=== PATIENT | female | born 1955 | race African-American/Black ===

== ENCOUNTER 2019-09-13 22:50 | Emergency (ER) | payer MEDICAID, MEDICARE, OTHER ==
[~2019-09-13] VITALS: Ht 167.6 cm; Wt 68.2 kg
[~2019-09-13 22:50] MED LIST: NOCURR
[2019-09-14] MEDS ORDERED: ACETAMINOPHEN 500 MG TABLET PO ONE
[2019-09-14] MEDS ORDERED: FluPHENAZine HCL 10 MG TABLET PO ONE (00:15)
[2019-09-14 00:30] VITALS: BP 126/75
== END 2019-09-14 01:20 | disposition home or self-care (01) ==
LOC: EMS 22:52
DX: F25.9 Schizoaffective disorder, unspecified (principal); M79.10 Myalgia, unspecified site; R05 Cough; R10.9 Unspecified abdominal pain

== ENCOUNTER 2021-11-06 04:01 | Emergency (ER) | payer MEDICARE ==
[~2021-11-06] VITALS: Ht 170.2 cm; Wt 88.6 kg
[2021-11-06 06:23] VITALS: BP 129/74
== END 2021-11-06 06:42 | disposition home or self-care (01) ==
LOC: EMS 04:13
DX: M17.0 Bilateral primary osteoarthritis of knee (principal)
CPT/HCPCS: 99283

== ENCOUNTER 2021-11-23 19:55 | Emergency (ER) | payer MEDICARE ==
[~2021-11-23] VITALS: Ht 154.9 cm; Wt 80.0 kg
[2021-11-23 20:21] VITALS: BP 122/58
[2021-11-23] MEDS ORDERED: ARIP2TAB3 PO (20:26)
== END 2021-11-23 23:06 | disposition home or self-care (01) ==
LOC: EMS 19:57
DX: D17.1 Benign lipomatous neoplasm of skin and subcutaneous tissue of trunk (principal); F32.A Depression, unspecified; Z88.0 Allergy status to penicillin; Z59.00 Homelessness unspecified
CPT/HCPCS: 99281; Z7502

== ENCOUNTER 2022-02-20 19:55 | Emergency (ER) | payer MEDICARE ==
[~2022-02-20] VITALS: Ht 167.6 cm; Wt 83.6 kg
[~2022-02-20 19:55] MED LIST changes: +AMLO-257 PO; +ARIP10TA38 PO; +ASPI-1450 PO; +ATOR20TA86 PO; -NOCURR
[2022-02-20] MEDS ORDERED: ACETAMINOPHEN 500 MG TABLET PO ONE (21:45)
[2022-02-20 22:48] VITALS: BP 135/74
== END 2022-02-20 23:04 | disposition home or self-care (01) ==
LOC: EMS 19:55
DX: M25.561 Pain in right knee (principal); I10 Essential (primary) hypertension; F32.9 Major depressive disorder, single episode, unspecified; F20.9 Schizophrenia, unspecified; Z88.0 Allergy status to penicillin; Z79.899 Other long term (current) drug therapy
CPT/HCPCS: 99283

== ENCOUNTER 2022-04-11 16:56 | Emergency (ER) | payer MEDICARE ==
[~2022-04-11] VITALS: Ht 167.6 cm; Wt 90.0 kg
[2022-04-11 19:40] LABS: BASOPHILS % (AUTO) 0.8 % (0.0-2.0); EOSINOPHILS % (AUTO) 0.6 % (1.0-6.0); HEMATOCRIT 35.2 % (36-46); HEMOGLOBIN 11.7 g/dL (12.0-16.0); LYMPHOCYTES % (AUTO) 20.8 % (22.0-44.0); MEAN CORPUSCULAR HEMOGLOBIN 30.2 pg (26.0-34.0); MEAN CORPUSCULAR HGB CONC 33.3 G/dL (31.0-37.0); MEAN CORPUSCULAR VOLUME 91 fL (80-100); MONOCYTES # (AUTO) 0.7 K/uL (0.1-1.0); MONOCYTES % (AUTO) 7.1 % (2.0-9.0); NEUTROPHILS # (AUTO) 6.9 K/uL (1.8-7.7); NEUTROPHILS % (AUTO) 70.7 % (40.0-70.0); PLATELET COUNT (AUTO) 263 K/uL (150-450); RED BLOOD CELL COUNT(AUTO) 3.87 MIL/uL (4.00-5.20); RED CELL DISTRIBUTION WIDTH 14.3 % (11.5-14.5)
[2022-04-11 19:43] LABS: ANION GAP 2 mmol/L (8-16); CALCIUM, TOTAL 9.1 mg/dL (8.8-10.5); CARBON DIOXIDE 30 mmol/L (22-29); CHLORIDE 107 mmol/L (98-107); CREATININE 0.86 mg/dL (0.60-1.30); GLUCOSE,RANDOM 96 mg/dL (70-110); POTASSIUM 4.2 mmol/L (3.5-5.1); SODIUM SERUM 139 mmol/L (136-145); UREA NITROGEN, BLOOD 26 mg/dL (7-18)
[2022-04-11 19:46] LABS: GLOMERULAR FILTR. RATE CALC > 60 mL/min (>60)
[2022-04-11 19:49] LABS: ALANINE AMINOTRANSFERASE 36 U/L (12-78); ALBUMIN 3.2 g/dL (3.4-5.0); ALKALINE PHOSPHATASE 150 U/L (46-116); ASPARTATE AMINOTRANSFERASE 21 U/L (15-37); BILIRUBIN,TOTAL 0.3 mg/dL (0.1-1.0); CREATINE KINASE, TOTAL ONLY 29 U/L (26-192); TOTAL PROTEIN, SERUM 7.3 g/dL (6.4-8.2)
[2022-04-11 19:50] LABS: INR 0.9 (0.9-1.1); PROTHROMBIN TIME 9.8 SEC (9.4-11.6)
[2022-04-11 19:57] LABS: B-TYPE NATRIURETIC PEPTIDE 46 pg/mL (0-100)
[2022-04-11 20:18] LABS: APPEARANCE,URINE CLEAR (CLEAR); BILIRUBIN,URINE NEGATIVE (NEGATIVE); GLUCOSE, URINE (UA) NEGATIVE (NEGATIVE); KETONES,URINE NEGATIVE (NEGATIVE); LEUKOCYTE ESTERASE ,URINE NEGATIVE (NEGATIVE); NITRATE,URINE NEGATIVE (NEGATIVE); OCCULT BLOOD,URINE NEGATIVE (NEGATIVE); PH,URINE 5.5 (5.0-8.0); PROTEIN,URINE TRACE mg/dL (NEGATIVE); SPECIFIC GRAVITIY, URINE 1.032 (1.003-1.030); UROBILINOGEN,URINE <=1.0 mg/dL (<=1.0)
[2022-04-11] MEDS ORDERED: ACETAMINOPHEN 500 MG TABLET PO ONE (21:15)
[2022-04-11 22:00] VITALS: BP 157/89
== END 2022-04-11 22:46 | disposition home or self-care (01) ==
LOC: EMS 16:56
DX: R07.89 Other chest pain (principal); F32.9 Major depressive disorder, single episode, unspecified; I10 Essential (primary) hypertension; F20.9 Schizophrenia, unspecified; F03.90 Unspecified dementia, unspecified severity, without behavioral disturbance, psychotic disturbance, mood disturbance, and anxiety; Z88.0 Allergy status to penicillin
CPT/HCPCS: 71045; 80053; 81003; 82550; 83880; 84484; 85025; 85610; 85730; 93005; 99285; 36415-L1; 36415-TC

== ENCOUNTER 2022-04-13 19:17 | Emergency (ER) | payer MEDICARE ==
[~2022-04-13] VITALS: Ht 167.6 cm; Wt 77.3 kg
[2022-04-13 21:11] LABS: BASOPHILS % (AUTO) 0.8 % (0.0-2.0); EOSINOPHILS % (AUTO) 1.1 % (1.0-6.0); HEMATOCRIT 34.8 % (36-46); HEMOGLOBIN 11.5 g/dL (12.0-16.0); LYMPHOCYTES # (AUTO) 1.8 K/uL (1.0-4.8); LYMPHOCYTES % (AUTO) 18.3 % (22.0-44.0); MEAN CORPUSCULAR HEMOGLOBIN 30.3 pg (26.0-34.0); MEAN CORPUSCULAR HGB CONC 33.1 G/dL (31.0-37.0); MEAN CORPUSCULAR VOLUME 91 fL (80-100); MONOCYTES # (AUTO) 0.8 K/uL (0.1-1.0); MONOCYTES % (AUTO) 7.9 % (2.0-9.0); NEUTROPHILS % (AUTO) 71.9 % (40.0-70.0); PLATELET COUNT (AUTO) 268 K/uL (150-450); RED BLOOD CELL COUNT(AUTO) 3.81 MIL/uL (4.00-5.20); RED CELL DISTRIBUTION WIDTH 14.7 % (11.5-14.5)
[2022-04-13 21:24] LABS: ANION GAP 5 mmol/L (8-16); CALCIUM, TOTAL 9.1 mg/dL (8.8-10.5); CARBON DIOXIDE 29 mmol/L (22-29); CHLORIDE 107 mmol/L (98-107); CREATININE 0.97 mg/dL (0.60-1.30); GLUCOSE,RANDOM 114 mg/dL (70-110); POTASSIUM 4.1 mmol/L (3.5-5.1); SODIUM SERUM 141 mmol/L (136-145); UREA NITROGEN, BLOOD 26 mg/dL (7-18)
[2022-04-13 21:25] LABS: GLOMERULAR FILTR. RATE CALC > 60 mL/min (>60)
[2022-04-13 21:30] LABS: ALANINE AMINOTRANSFERASE 31 U/L (12-78); ALBUMIN 2.9 g/dL (3.4-5.0); ALKALINE PHOSPHATASE 145 U/L (46-116); ASPARTATE AMINOTRANSFERASE 16 U/L (15-37); BILIRUBIN,TOTAL 0.2 mg/dL (0.1-1.0); TOTAL PROTEIN, SERUM 6.9 g/dL (6.4-8.2)
[2022-04-13 23:00] VITALS: BP 137/88
== END 2022-04-14 01:37 | disposition home or self-care (01) ==
LOC: EMS 19:17
DX: R07.9 Chest pain, unspecified (principal); M54.6 Pain in thoracic spine; E11.9 Type 2 diabetes mellitus without complications; I10 Essential (primary) hypertension; F03.90 Unspecified dementia, unspecified severity, without behavioral disturbance, psychotic disturbance, mood disturbance, and anxiety
CPT/HCPCS: 71045; 80053; 84484; 85025; 93005; 99285; 36415-L1; 36415-TC

== ENCOUNTER 2022-11-14 01:10 | Emergency (ER) | payer MEDICARE ==
[~2022-11-14] VITALS: Ht 167.6 cm; Wt 81.4 kg
[~2022-11-14 01:10] MED LIST changes: +ATOR20TA PO; -ATOR20TA86 PO
[2022-11-14 02:24] VITALS: BP 143/90
[2022-11-14] MEDS ORDERED: KETOROLAC TROMETHAMINE 30 MG/ML VIAL IM ONE (04:30)
== END 2022-11-14 05:23 | disposition home or self-care (01) ==
LOC: EMS 01:12
DX: S39.012A Strain of muscle, fascia and tendon of lower back, initial encounter (principal); M17.0 Bilateral primary osteoarthritis of knee; I10 Essential (primary) hypertension; F20.9 Schizophrenia, unspecified; Z88.0 Allergy status to penicillin; X58.XXXA Exposure to other specified factors, initial encounter; Y93.89 Activity, other specified; Y92.89 Other specified places as the place of occurrence of the external cause; Y99.8 Other external cause status
CPT/HCPCS: 99283; 82962; 96372; J1885

== ENCOUNTER 2024-04-11 13:45 | Emergency (ER) | payer MEDICARE, OTHER ==
[~2024-04-11] VITALS: Ht 167.6 cm; Wt 95.0 kg
[2024-04-11 13:59] VITALS: BP 102/64; PULSE 78; RESP 18; TEMP 98.4; O2SAT 98
[2024-04-11] MEDS ORDERED: CELE200 PO (14:19)
[2024-04-11] MEDS: KETOROLAC TROMETHAMINE 60 MG/2 ML VIAL IM ONE (14:24)
== END 2024-04-11 14:45 | disposition home or self-care (01) ==
LOC: EMS 13:52
DX: M17.0 Bilateral primary osteoarthritis of knee (principal); M16.0 Bilateral primary osteoarthritis of hip; I10 Essential (primary) hypertension; Z88.0 Allergy status to penicillin
CPT/HCPCS: 99283; 96372; J1885